=== PATIENT | female | born 1985 | race Caucasian/White ===

== ENCOUNTER 2016-08-17 02:34 | Emergency (ER) | payer OTHER ==
[~2016-08-17] VITALS: Ht 170.2 cm; Wt 91.0 kg
[~2016-08-17 02:34] MED LIST: EXCETAB PO; ZOFR4TAB PO
[2016-08-17 02:39] VITALS: BP 109/72; PULSE 70; RESP 18; TEMP 97.7; O2SAT 97
[2016-08-17] MEDS ORDERED: SODIUM CHLOR 0.9% 1000 ML INJ 1,000 ML IV ONE (02:52)
[2016-08-17] MEDS ORDERED: diphenhydrAMINE HCL 50 MG/ML VIAL IVP ONE (03:00)
[2016-08-17] MEDS ORDERED: KETOROLAC TROMETHAMINE 30 MG/ML (IVP) VIAL IVP ONE (03:00)
[2016-08-17] MEDS ORDERED: SODIUM CHLORIDE 0.9% FLUSH 10 ML FLUSH IVF PRN (03:00)
[2016-08-17] MEDS ORDERED: ONDANSETRON HCL 4 MG/2 ML VIAL IVP ONE (03:00)
--- NOTE | 2016-08-17 03:03 | PD ---
HPI Chief Complaint: Headache Time Seen by Provider: 02:52 Travel History International Travel<30 days: No Contact w/Intl Traveler<30days: No Traveled to known affect area: No History of Present Illness HPI The patient is a 30-year-old female with a history of migraine headaches complains of her typical migraine headache beginning about 4 hours prior to admission here. Yesterday for most of the day she has right sided "tension" headache but 3-4 hours ago she began with her right sided, behind the right eye headache. Her headache is associated with photophobia and phonophobia. She has nausea and vomiting without diarrhea or abdominal pain. She denies any fever. She denies any focal neurologic change. The headache was of gradual onset and not a thunderclap type headache. She states she cannot be , she and her use condoms and her last missed her period was 2 weeks ago and normal. She states she has done well in the past with Toradol, Zofran and Benadryl. 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) Immunizations Current: Yes Migraines: Yes ?: Not LMP: 08/05/16 : 0 Past Surgical History Neurologic Surgery: Yes (THIRD VENTRICULOSTOMY [facility], 2001) Other Surgery: Yes (THIRD VENTRICULOSTOMY 2001 FOR BRAIN TUMOR WHICH BLOCKS THE 3RD VENTRICLE) Social History Alcohol Use: No Tobacco Use: No Substance Use: No Allergies-Medications (Allergen,Severity, Reaction): Coded Allergies: Augmentin (Verified Allergy, Severe, HIVES, 08/17/16) Ceclor (Verified Allergy, Severe, HIVES, 08/17/16) Dilaudid (Verified Allergy, Severe, HIVES, 08/17/16) Reported Meds & Prescriptions Reported Meds & Active Scripts Active Zofran (Ondansetron HCl) 8 Mg Tab 8 Mg PO TID Ibuprofen 800 Mg Tab 800 Mg PO TID Fiorinal (Butalbital/Aspirin/Caffeine) 50-325-40 Mg Cap 1 Cap PO Q4H PRN Do not exceed 6 capsules/day. Zofran (Ondansetron HCl) 4 Mg Tab 4 Mg PO Q6HR PRN Reported Excedrin Migraine (Gyszchz-Uacnmtpbjvllf-Qhwedobp) 250-250-65 Mg Tab 2 Tab PO DIRECTED PRN Review of Systems Except as stated in HPI: all other systems reviewed are Neg Physical Exam Narrative GENERAL: The patient is alert, oriented 3 in moderate to severe distress with her headache. The vital signs are normal. SKIN: Focused skin assessment warm/dry. HEAD: Atraumatic. Normocephalic. EYES: Pupils equal and round. No scleral icterus. No injection or drainage. ENT: No nasal bleeding or discharge. Mucous membranes pink and moist. NECK: Trachea midline. No JVD. There is no meningismus and the patient can touch her chin to the chest with no significant pain. CARDIOVASCULAR: Regular rate and rhythm. No murmur appreciated. RESPIRATORY: No accessory muscle use. Clear to auscultation. Breath sounds equal bilaterally. GASTROINTESTINAL: Abdomen soft, non-tender, nondistended. Hepatic and splenic margins not palpable. MUSCULOSKELETAL: No obvious deformities. No clubbing. No cyanosis. No edema. NEUROLOGICAL: Awake and alert. No obvious cranial nerve deficits. Motor grossly within normal limits. Normal speech and gait. PSYCHIATRIC: Appropriate mood and affect; insight and judgment normal. Data Data Last Documented VS Vital Signs Date Time Temp Pulse Resp B/P Pulse Ox O2 Delivery O2 Flow Rate FiO2 08/17/16 02:39 97.7 70 18 109/72 97 Orders Ecg Monitoring (08/17/16 02:52) Iv Access Insert/Monitor (08/17/16 02:52) Oximetry (08/17/16 02:52) Sodium Chloride 0.9% Flush (Ns Flush) (08/17/16 03:00) Ketorolac Inj (Toradol Inj) (08/17/16 03:00) Ondansetron Inj (Zofran Inj) (08/17/16 03:00) Diphenhydramine Inj (Benadryl Inj) (08/17/16 03:00) Sodium Chlor 0.9% 1000 Ml Inj (Ns 1000 M (08/17/16 02:52) Prochlorperazine Inj (Compazine Inj) (08/17/16 03:45) MDM Medical Decision Making Medical Screen Exam Complete: Yes Emergency Medical Condition: Yes Medical Record Reviewed: Yes Interpretation(s) The kkilc-rv-jatv urine test is negative. Differential Diagnosis Migraine headache, tension headache, tension/migraine combination headache, cluster headache, normal pressure hydrocephalus, subarachnoid hemorrhage unlikely Narrative Course The patient has a migraine headache with some tension component. It is now 0344 and the patient has no headache pain at this time. She still has some nausea despite the 4 mg of IV Zofran. The patient will be given Compazine, 10 mg IV. She is given a work excuse for today and prescribed Fiorinal, Zofran 8 mg and 800 mg Motrin. 8 mg of Zofran was used because 4 mg of IV Zofran was inadequate to resolve the nausea. She is to follow-up with her primary care physician as scheduled. Diagnosis Primary Impression: Migraine variant with headache Additional Instructions: As we discussed, the Zofran is 8 mg every 8 hours for nausea. Follow-up with your primary care physician as scheduled. Med/Other Pt SpecificInfo: Prescription(s) given Scripts Ondansetron (Zofran)8 Mg Tab8 Mg PO TID #28 TAB Ref 0 Prov:Govind Minor MD 08/17/16 Ibuprofen 800 Mg Bib038 Mg PO TID #33 TAB Ref 0 Prov:Govind Minor MD 08/17/16 Xysunabwza-Cvvjfjn-Zhydlarc (Fiorinal)50-325-40 Mg Cap1 Cap PO Q4H PRN (HEADACHE ) #21 CAP Ref 0 Do not exceed 6 capsules/day. Prov:Govind Minor MD 08/17/16 Disposition: 01 DISCHARGE HOME Condition: Stable Govind Minor MD August 17, 2016 03:03
[2016-08-17] MEDS ORDERED: ZOFR8TAB PO (03:43)
[2016-08-17] MEDS ORDERED: FIORINAL2 PO (03:43)
[2016-08-17] MEDS ORDERED: IBUP800T23 PO (03:43)
[2016-08-17] MEDS ORDERED: PROCHLORPERAZINE INJ 10 MG/2 ML VIAL IV PUSH ONE (03:45)
[2016-08-17 04:17] VITALS: BP 127/68
== END 2016-08-17 04:21 | disposition home or self-care (01) ==
LOC: PHED 02:34
DX: G43.809 Other migraine, not intractable, without status migrainosus (principal); Z86.69 Personal history of other diseases of the nervous system and sense organs
CPT/HCPCS: 84703; 96361; 96374; 96375; 99283; J0780; J1200; J1885; J2405; J7030

== ENCOUNTER 2016-10-18 02:01 | Emergency (ER) | payer OTHER ==
[~2016-10-18] VITALS: Ht 170.2 cm; Wt 87.3 kg
[~2016-10-18 02:01] MED LIST changes: +FIORINAL2 PO; +IBUP800T23 PO; +ZOFR8TAB PO
[2016-10-18 02:07] VITALS: BP 108/78; PULSE 111; RESP 16; TEMP 97.5; O2SAT 99
[2016-10-18] MEDS ORDERED: ONDANSETRON HCL 4 MG/2 ML VIAL IVP ONE (02:15)
[2016-10-18] MEDS ORDERED: SODIUM CHLOR 0.9% 1000 ML INJ 1,000 ML IV ONE ×2 (02:15→04:15)
[2016-10-18] MEDS ORDERED: SODIUM CHLORIDE 0.9% FLUSH 10 ML FLUSH IVF PRN (02:15)
[2016-10-18 02:22] VITALS: BP 108/78; PULSE 108; RESP 18; TEMP 97.5; O2SAT 99
[2016-10-18 02:24] VITALS: RESP 18; O2SAT 99
[2016-10-18 02:38] LABS: AUTOMATED NEUTROPHIL # 13.8 TH/MM3 (1.8-7.7); BASOPHIL # 0.1 TH/MM3 (0-0.2); BASOPHIL % 0.9 % (0.0-2.0); EOSINOPHIL # 0.1 TH/MM3 (0-0.4); EOSINOPHIL % 0.9 % (0.0-4.0); HEMATOCRIT 44.5 % (35.0-46.0); HEMO FLAGS DIFF FINAL; LYMPH % 5.8 % (9.0-44.0); LYMPHOCYTE # 0.9 TH/MM3 (1.0-4.8); MEAN CELL VOLUME 86.7 FL (80.0-100.0); MEAN CORPUSCULAR HGB CONC 33.4 % (32.0-36.0); MONO % 0.1 % (0.0-8.0); NEUT % 92.3 % (16.0-70.0); PLATELET COUNT 348 TH/MM3 (150-450); RED BLOOD COUNT 5.14 MIL/MM3 (4.00-5.30); RED CELL DISTRIBUTION WIDTH 12.4 % (11.6-17.2); WHITE BLOOD COUNT 14.9 TH/MM3 (4.0-11.0)
--- NOTE | 2016-10-18 02:40 | PD ---
HPI Chief Complaint: GI Complaint Time Seen by Provider: 02:15 Travel History International Travel<30 days: No Contact w/Intl Traveler<30days: No Traveled to known affect area: No History of Present Illness HPI 31-year-old female presents to the emergency department the care of her spouse for evaluation of nausea vomiting diarrhea and abdominal cramping since 11 PM. Patient ate dinner approximately 4 PM and after developing diarrhea vomited stomach contents which consistent with her meal from [employer] today. Patient's had no fever or chills. Patient denies biliary emesis coffee-ground emesis or hematemesis also no melena or hematochezia or mucoid stools. No recent antibiotic use. Patient did have an MRI today for follow-up of history of brain tumor which has been unchanged since 2001 and was undergoing a periodic monitoring of her tumor size. Patient states there is been no change in tumor size reportedly since 2001. Patient denies other concerns or complaints. Spouse is at bedside and aided the same location but did not eat the exact same foods. No other persons were present that they're aware that if the same food that the patient ate. Patient denies other concerns or complaints patient does have history of migraine but does not report a migraine at this time. Abdominal cramping when present is 4/10 intensity. Patient has noted decreased urine output. 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) Immunizations Current: Yes Migraines: Yes Tetanus Vaccination: Unknown Influenza Vaccination: No ?: Unknown LMP: 09/03/16 : 0 Past Surgical History Neurologic Surgery: Yes (THIRD VENTRICULOSTOMY [facility], 2001) Other Surgery: Yes (THIRD VENTRICULOSTOMY 2001 FOR BRAIN TUMOR WHICH BLOCKS THE 3RD VENTRICLE) Social History Alcohol Use: No Tobacco Use: No Substance Use: No Allergies-Medications (Allergen,Severity, Reaction): Coded Allergies: Augmentin (Verified Allergy, Severe, HIVES, 10/18/16) Ceclor (Verified Allergy, Severe, HIVES, 10/18/16) Dilaudid (Verified Allergy, Severe, HIVES, 10/18/16) Reported Meds & Prescriptions Reported Meds & Active Scripts Active Zofran Odt (Ondansetron Odt) 8 Mg Tab 8 Mg SL Q8H PRN Ibuprofen 800 Mg Tab 800 Mg PO TID Fiorinal (Butalbital/Aspirin/Caffeine) 50-325-40 Mg Cap 1 Cap PO Q4H PRN Do not exceed 6 capsules/day. Review of Systems Except as stated in HPI: all other systems reviewed are Neg General / Constitutional: No: Fever, Chills HENT: No: Congestion Cardiovascular: No: Chest Pain or Discomfort Gastrointestinal: Positive: Nausea, Vomiting, Diarrhea, Abdominal Pain, No: Hematemesis (cramping), Hematochezia, Loss of Appetite Genitourinary: Positive: Decreased Urinary Output, No: Urgency, Frequency, Dysuria Musculoskeletal: No: Myalgias, Arthralgias Skin: No Rash Neurologic: No: Weakness, Dizziness, Syncope, Focal Abnormalities, Coordination Problem, Headache, Change in Mentation Psychiatric: No: Anxiety Endocrine: No: Heat Intolerance Hematologic/Lymphatic: No: Easy Bruising Physical Exam Narrative GENERAL: Well-developed well-nourished female in no acute distress no respiratory distress; GCS 15 SKIN: Warm and dry. HEAD: Normocephalic. EYES: No scleral icterus. No injection or drainage. NECK: Supple, trachea midline. No JVD or lymphadenopathy. No meningismus no nuchal rigidity. CARDIOVASCULAR: Regular rate and rhythm without murmurs, gallops, or rubs. RESPIRATORY: Breath sounds equal bilaterally. No accessory muscle use. GASTROINTESTINAL: Abdomen soft, mild diffuse tenderness to palpation without guarding or rebound, nondistended. MUSCULOSKELETAL: No cyanosis, or edema. BACK: Nontender without obvious deformity. No CVA tenderness. Data Data Last Documented VS Vital Signs Date Time Temp Pulse Resp B/P Pulse Ox O2 Delivery O2 Flow Rate FiO2 10/18/16 03:57 77 16 110/72 99 Room Air 10/18/16 02:22 97.5 Orders Complete Blood Count With Diff (10/18/16 02:15) Comprehensive Metabolic Panel (10/18/16 02:15) Urinalysis - C+S If Indicated (10/18/16 02:15) Lipase (10/18/16 02:15) Iv Access Insert/Monitor (10/18/16 02:15) Ecg Monitoring (10/18/16 02:15) Oximetry (10/18/16 02:15) Ondansetron Inj (Zofran Inj) (10/18/16 02:15) Sodium Chloride 0.9% Flush (Ns Flush) (10/18/16 02:15) Ed Urine Pregnancytest Poc (10/18/16 02:15) Sodium Chlor 0.9% 1000 Ml Inj (Ns 1000 M (10/18/16 02:15) Ondansetron Inj (Zofran Inj) (10/18/16 03:45) Sodium Chlor 0.9% 1000 Ml Inj (Ns 1000 M (10/18/16 04:15) Labs Laboratory Tests Test 10/18/16 10/18/16 02:30 04:05 White Blood Count 14.9 TH/MM3 Red Blood Count 5.14 MIL/MM3 Hemoglobin 14.9 GM/DL Hematocrit 44.5 % Mean Corpuscular Volume 86.7 FL Mean Corpuscular Hemoglobin 29.0 PG Mean Corpuscular Hemoglobin 33.4 % Concent Red Cell Distribution Width 12.4 % Platelet Count 348 TH/MM3 Mean Platelet Volume 8.0 FL Neutrophils (%) (Auto) 92.3 % Lymphocytes (%) (Auto) 5.8 % Monocytes (%) (Auto) 0.1 % Eosinophils (%) (Auto) 0.9 % Basophils (%) (Auto) 0.9 % Neutrophils # (Auto) 13.8 TH/MM3 Lymphocytes # (Auto) 0.9 TH/MM3 Monocytes # (Auto) 0.0 TH/MM3 Eosinophils # (Auto) 0.1 TH/MM3 Basophils # (Auto) 0.1 TH/MM3 CBC Comment DIFF FINAL Differential Comment Sodium Level 141 MEQ/L Potassium Level 3.7 MEQ/L Chloride Level 108 MEQ/L Carbon Dioxide Level 22.9 MEQ/L Anion Gap 10 MEQ/L Blood Urea Nitrogen 15 MG/DL Creatinine 1.20 MG/DL Estimat Glomerular Filtration 52 ML/MIN Rate Random Glucose 123 MG/DL Calcium Level 9.7 MG/DL Total Bilirubin 0.5 MG/DL Aspartate Amino Transf 19 U/L (AST/SGOT) Alanine Aminotransferase 22 U/L (ALT/SGPT) Alkaline Phosphatase 84 U/L Total Protein 8.3 GM/DL Albumin 4.3 GM/DL Lipase 123 U/L Urine Color YELLOW Urine Turbidity CLEAR Urine pH 6.0 Urine Specific [place] 1.017 Urine Protein NEG mg/dL Urine Glucose (UA) 1000 OR GREATER mg/dL Urine Ketones NEG mg/dL Urine Occult Blood NEG Urine Nitrite NEG Urine Bilirubin NEG Urine Leukocyte Esterase NEG Urine RBC 0-2 /hpf Urine WBC 0-2 /hpf Urine Squamous Epithelial 0-5 /hpf Cells Urine Bacteria NONE /hpf Microscopic Urinalysis Comment CULT NOT INDICATED MDM Medical Decision Making Medical Screen Exam Complete: Yes Emergency Medical Condition: Yes Medical Record Reviewed: Yes Interpretation(s) CBC & BMP Diagram 10/18/16 02:30 Vital Signs Date Time Temp Pulse Resp B/P Pulse Ox O2 Delivery O2 Flow Rate FiO2 10/18/16 03:57 77 16 110/72 99 Room Air 10/18/16 02:24 18 99 Room Air 10/18/16 02:24 18 10/18/16 02:22 97.5 108 18 108/78 99 10/18/16 02:07 97.5 111 16 108/78 99 Room Air Differential Diagnosis Gastroenteritis, food borne illness, dehydration, electronic disturbance, viral syndrome, hydrocephalus, pseudotumor cerebri Narrative Course IV access obtained specimens collected and sent for resulting patient administered Zofran 4 mg IV and 1 L normal saline bolus Patient requesting additional antiemetic Zofran 4 mg IV administered CBC with automated differential mild leukocytosis most likely reflects dehydration/volume depletion and stress demargination in view of minimally tender abdomen without focality Metabolic panel within normal limits except for mild renal insufficiency consistent with volume depletion/dehydration associated with multiple episodes of watery diarrhea and vomiting Urinalysis pending Urinalysis shows glucosuria but no evidence of ketonuria; random glucose is 123 bicarbonate and anion gap Patient clinically improved desirous of a trial of oral hydration in anticipation of being discharged to home It is now 5:10 AM and patient is stable for outpatient management; has tolerated oral hydration well and p.o. trial well in the emergency department Diagnosis Primary Impression: Gastroenteritis Referrals: Primary Care Physician call for appointment Patient Instructions: General Instructions Additional Instructions: Follow clear liquid diet for next 12-24 hours advance as tolerated to bland/ Alyssa diet then regular diet Take acetaminophen/Tylenol every 4 hours as needed for fever 100.4F or greater Takes Zofran as prescribed as needed for nausea and/or vomiting Follow-up with primary care provider Return to the emergency department for any concerns or change in condition such as pain fever or vomiting Med/Other Pt SpecificInfo: Prescription(s) given Scripts Ondansetron Odt (Zofran Odt)8 Mg Tab8 Mg SL Q8H PRN (NAUSEA OR VOMITING) #10 TAB Ref 0 Prov:Emma Lawrence MD 10/18/16 Disposition: 01 DISCHARGE HOME Condition: Stable Emma Lawrence MD Oct 18, 2016 02:40
[2016-10-18 02:45] LABS: CHLORIDE 108 MEQ/L (98-107); POTASSIUM 3.7 MEQ/L (3.5-5.1); SODIUM (NA) 141 MEQ/L (136-145)
[2016-10-18 02:49] LABS: ANION GAP 10 MEQ/L (5-15); BICARBONATE 22.9 MEQ/L (21.0-32.0)
[2016-10-18 02:50] LABS: BLOOD UREA NITROGEN 15 MG/DL (7-18)
[2016-10-18 02:52] LABS: ALT (GPT) 22 U/L (10-53); AST (GOT) 19 U/L (15-37); GLOMERULAR FILTRATION RATE 52 ML/MIN (>89)
[2016-10-18 02:54] LABS: TOTAL BILIRUBIN ADULT 0.5 MG/DL (0.2-1.0)
[2016-10-18 02:55] LABS: ALKALINE PHOSPHATASE 84 U/L (45-117)
[2016-10-18] MEDS ORDERED: ONDANSETRON HCL 4 MG/2 ML VIAL IV PUSH ONE (03:45)
[2016-10-18 03:57] VITALS: BP 110/72; PULSE 77; RESP 16; O2SAT 99
[2016-10-18 04:16] LABS: BLOOD, URINE NEG (NEG); KETONE, URINE NEG (NEG); NITRITE,URINE NEG (NEG)
[2016-10-18 04:21] LABS: COMMENT (UR) CULT NOT INDICATED; CULTURE IF INDICATED CULT NOT INDICATED; GLUCOSE,URINE 1000 OR GREATER mg/dL (NEG); RBC, URINE 0-2 /hpf (0-3); SQUAMOUS EPITHELIAL CELL URINE 0-5 /hpf (0-5); URINE COLOR YELLOW (YELLW/STRAW); WBC, URINE 0-2 /hpf (0-5)
[2016-10-18] MEDS ORDERED: ZOFR8TAB4 SL (04:45)
[2016-10-18 05:06] VITALS: PULSE 81; RESP 16; O2SAT 99
[2016-10-18] MEDS ORDERED: PROM25TA10 PO (11:36)
[2016-10-18] MEDS ORDERED: PROM1SUP7 RECTAL (11:36)
== END 2016-10-18 05:14 | disposition home or self-care (01) ==
LOC: PHED 02:01
DX: K52.9 Noninfective gastroenteritis and colitis, unspecified (principal)
CPT/HCPCS: 80053; 81001; 83690; 84703; 85025; 96361; 96374; 96376; 99284; J2405; J7030

== ENCOUNTER 2016-10-18 09:56 | Emergency (ER) | payer OTHER ==
[~2016-10-18] VITALS: Ht 165.1 cm; Wt 98.8 kg
[~2016-10-18 09:56] MED LIST changes: +ZOFR8TAB4 SL
[2016-10-18 10:05] VITALS: BP 101/60; PULSE 85; RESP 18; TEMP 97.4; O2SAT 97
[2016-10-18] MEDS ORDERED: PROMETHAZINE INJ 25 MG/ML VIAL IM ONE (10:30)
--- NOTE | 2016-10-18 10:41 | PD ---
HPI Chief Complaint: GI Complaint Time Seen by Provider: 10:07 Travel History International Travel<30 days: No Contact w/Intl Traveler<30days: No Traveled to known affect area: No History of Present Illness HPI This is a 31-year-old female presents emergency department with continued nausea vomiting and diarrhea. She was evaluated last night diagnosed with gastroenteritis and sent home with a prescription for Zofran. She said despite the Zofran she continues to vomit and have some diarrhea which become clear and consistency of water. Patient denies any fever or abdominal pain. Denies any presyncopal symptoms. Workup last night included a CBC and CMP [place] was minimally elevated to 1.2. She received fluids and Zofran was tolerating some by mouth Gatorade when she left but she states when she got home she threw it up. All this started after eating at [employer] yesterday afternoon. She ate with her significant other who has not been sick but they states that they had different foods. 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) Immunizations Current: Yes Migraines: Yes ?: Not : 0 Past Surgical History Neurologic Surgery: Yes (THIRD VENTRICULOSTOMY [facility], 2001) Other Surgery: Yes (THIRD VENTRICULOSTOMY 2001 FOR BRAIN TUMOR WHICH BLOCKS THE 3RD VENTRICLE) Social History Alcohol Use: No Tobacco Use: No Substance Use: No Allergies-Medications (Allergen,Severity, Reaction): Coded Allergies: Augmentin (Verified Allergy, Severe, HIVES, 10/18/16) Ceclor (Verified Allergy, Severe, HIVES, 10/18/16) Dilaudid (Verified Allergy, Severe, HIVES, 10/18/16) Reported Meds & Prescriptions Reported Meds & Active Scripts Active Phenergan (Promethazine HCl) 25 Mg Tablet 25 Mg PO Q6H PRN Phenergan Supp (Promethazine HCl) 25 Mg Supp 25 Mg RECTAL Q6H PRN Zofran Odt (Ondansetron Odt) 8 Mg Tab 8 Mg SL Q8H PRN Ibuprofen 800 Mg Tab 800 Mg PO TID Fiorinal (Butalbital/Aspirin/Caffeine) 50-325-40 Mg Cap 1 Cap PO Q4H PRN Do not exceed 6 capsules/day. Review of Systems Except as stated in HPI: all other systems reviewed are Neg Physical Exam Narrative GENERAL: Well-developed well-nourished no obvious distress. SKIN: Focused skin assessment warm/dry. HEAD: Atraumatic. Normocephalic. EYES: Pupils equal and round. No scleral icterus. No injection or drainage. ENT: No nasal bleeding or discharge. Mucous membranes pink and moist. NECK: Trachea midline. No JVD. CARDIOVASCULAR: Regular rate and rhythm. No murmur appreciated. RESPIRATORY: No accessory muscle use. Clear to auscultation. Breath sounds equal bilaterally. GASTROINTESTINAL: Abdomen soft, non-tender, nondistended. Hepatic and splenic margins not palpable. No rebound no percussive tenderness. MUSCULOSKELETAL: No obvious deformities. No clubbing. No cyanosis. No edema. NEUROLOGICAL: Awake and alert. No obvious cranial nerve deficits. Motor grossly within normal limits. Normal speech. PSYCHIATRIC: Appropriate mood and affect; insight and judgment normal. Data Data Last Documented VS Vital Signs Date Time Temp Pulse Resp B/P Pulse Ox O2 Delivery O2 Flow Rate FiO2 10/18/16 11:45 76 16 100/44 99 10/18/16 10:05 97.4 Orders Promethazine Inj (Phenergan Inj) (10/18/16 10:30) MDM Medical Decision Making Medical Screen Exam Complete: Yes Emergency Medical Condition: Yes Medical Record Reviewed: Yes Differential Diagnosis Gastritis, gastritis, mild dehydration, nausea vomiting. Narrative Course Patient was roomed in emergency department, given an injection of Phenergan, she is feeling better and is able to tolerate 8 ounces of by mouth water. Review of records did show minimally elevated white blood cell count per abdomen is benign. Creatinine 1.2 indicating some mild level dehydration. Her vital signs are stable from last night. I recommended a course of Phenergan at home discussed will be happy to prescribe O suppositories and orally and recommended use of either or. Discussed push by mouth fluids symptomatic management and return to ED criteria. She is feeling better is no indication further workup at this time per she was invited to return the emergency department if she continues to throw fluids for dehydration and consideration of observation status. She verbalized understanding and agreement. Diagnosis Primary Impression: Gastroenteritis Med/Other Pt SpecificInfo: Prescription(s) given Scripts Promethazine (Phenergan)25 Mg Nlulfl03 Mg PO Q6H PRN (NAUSEA OR VOMITING) #20 TAB Ref 0 Prov:Luis Fernando Yang MD 10/18/16 Promethazine Supp (Phenergan Supp)25 Mg Supp25 Mg RECTAL Q6H PRN (NAUSEA OR VOMITING) #12 SUPP Ref 0 Prov:Luis Fernando Yang MD 10/18/16 Disposition: 01 DISCHARGE HOME Condition: Stable Luis Fernando Yang MD Oct 18, 2016 10:41
[2016-10-18] MEDS ORDERED: PROM1SUP7 RECTAL (11:36)
[2016-10-18] MEDS ORDERED: PROM25TA10 PO (11:36)
[2016-10-18 11:45] VITALS: BP 100/44
== END 2016-10-18 11:48 | disposition home or self-care (01) ==
LOC: PHED 09:56
DX: K52.9 Noninfective gastroenteritis and colitis, unspecified (principal)
CPT/HCPCS: 96372; 99284; J2550